=== PATIENT | male | born 1985 | race American Indian/Alaskan Native ===

== ENCOUNTER 2016-05-20 12:25 | Emergency (ER) | payer SELFPAY ==
[2016-05-20 15:36] LABS: Anion Gap 17 mmol/L; BUN/Creatinine Ratio 21.25; Blood Urea Nitrogen 17 mg/dL (9-20); Calcium 8.4 mg/dL (8.4-10.2); Carbon Dioxide 23 mmol/L (22-30); Chloride 105.5 mmol/L (98-107); Creatine Kinase 187 units/L (55-170); Glucose 91 mg/dL (75-100); Potassium 4.1 mmol/L (3.6-5.0); Sodium 141 mmol/L (137-145)
[2016-05-20 15:45] LABS: Basophils % (Auto) 0.8 % (0.0-1.8); Eosinophils % (Auto) 2.3 % (0.0-4.3); Hematocrit 41.6 % (35.5-45.6); Hemoglobin 14.1 gm/dl (11.8-15.2); Mean Corpuscular HGB Conc 34 % (32-34); Mean Corpuscular Hemoglobin 33 pg (28-32); Mean Corpuscular Volume 96 fl (84-94); Platelet Count 231 K/mm3 (140-440); Red Blood Count 4.35 M/mm3 (3.65-5.03); Red Cell Distribution Width 12.4 % (13.2-15.2)
--- NOTE | 2016-05-20 16:08 | XRay Report ---
ROUTINE CHEST, TWO VIEWS: Chest pain PA and lateral views demonstrate the heart and mediastinal contour to be of normal size and shape. The lungs are clear and fully expanded and the soft tissues and bony structures are normal. IMPRESSION: Normal study.
--- NOTE | 2016-05-20 16:20 | Emergency Department Report ---
ED Chest Pain HPI - General Chief Complaint: Chest Pain Stated Complaint: R SIDE NUMBNESS ARM DOWN TO LEG Time Seen by Provider: 05/20/16 16:17 Source: patient Mode of arrival: Ambulatory Limitations: No Limitations - History of Present Illness Initial Comments: Patient complaining of intermittent right-sided and left-sided chest pain for the past 7 days. Patient relates it is a squeezing pressure-like sensation. Patient denies nausea vomiting, diaphoresis, but does complain of shortness of breath when the pain occurs. Dates she called EMS last night and was told that it was probably just anxiety. Patient was not transported last night. MD Complaint: chest pain -: week(s) Onset: other (patient's pain has no correlation with any activity, and resolved spontaneously) Pain Location: left chest, right chest Quality: tightness, heaviness, pressure, squeezing Consistency: intermittent Improves With: rest - Related Data Allergies Allergy/AdvReac Type Severity Reaction Status Date / Time No Known Allergies Allergy Unverified 05/20/16 12:57 RODOLFO score - Rodolfo Score Age > 65: (0) No Aspirin use within the Past 7 Days: (0) No 3 or more CAD Risk Factors: (0) No 2 or more Angina events in past 24 hrs: (1) Yes Known CAD with more than 50% Stenosis: (0) No Elevated Cardiac Markers: (0) No ST Deviation Greater than 0.5mm: (0) No RODOLFO Score: 1 ED Review of Systems ROS: Stated complaint: R SIDE NUMBNESS ARM DOWN TO LEG Other details as noted in HPI Constitutional: denies: chills, diaphoresis, fever, malaise Eyes: denies: vision change Respiratory: shortness of breath. denies: cough, SOB with exertion, SOB at rest , wheezing Cardiovascular: denies: chest pain, edema, syncope, paroxysmal nocturnal dyspnea Endocrine: denies: excessive sweating, intolerance to cold, intolerance to heat Gastrointestinal: denies: nausea, vomiting, diarrhea, constipation Musculoskeletal: denies: back pain, joint swelling, arthralgia, myalgia Skin: denies: rash, lesions Neurological: paresthesias. denies: headache, weakness ED Past Medical Hx - Past Medical History Previous Medical History?: No - Surgical History Past Surgical History?: No - Social History Smoking Status: Current Every Day Smoker Substance Use Type: Alcohol, Marijuana ED Physical Exam - General Limitations: No Limitations General appearance: alert, in no apparent distress - Eye Eye exam: Present: normal appearance, PERRL, EOMI. Absent: scleral icterus, conjunctival injection, nystagmus, periorbital swelling, periorbital tenderness Pupils: Present: normal accommodation - ENT ENT exam: Present: mucous membranes moist - Neck Neck exam: Present: normal inspection, full ROM. Absent: tenderness, meningismus, lymphadenopathy, thyromegaly - Respiratory Respiratory exam: Present: normal lung sounds bilaterally. Absent: respiratory distress, wheezes, rales, rhonchi, stridor, chest wall tenderness, accessory muscle use, decreased breath sounds, prolonged expiratory - Cardiovascular Cardiovascular Exam: Present: regular rate, normal rhythm, normal heart sounds - GI/Abdominal GI/Abdominal exam: Present: soft, normal bowel sounds. Absent: distended, tenderness, guarding, rebound, rigid - Extremities Exam Extremities exam: Present: normal inspection, normal capillary refill. Absent: pedal edema, joint swelling, calf tenderness - Back Exam Back exam: Present: normal inspection. Absent: CVA tenderness (R), CVA tenderness (L) - Neurological Exam Neurological exam: Present: alert, oriented X3, normal gait. Absent: altered - Skin Skin exam: Present: warm, dry, intact, normal color. Absent: diaphoretic ED Course Vital Signs 05/20/16 05/20/16 12:51 20:09 Temperature 98.4 F 98.1 F Pulse Rate 63 63 Respiratory 20 18 Rate Blood Pressure 116/73 Blood Pressure 133/81 [Right] O2 Sat by Pulse 100 96 Oximetry - Reevaluation(s) Reevaluation #1: 05/20/16 20:05 patient advised that he is going to be admitted for atypical chest pain. Patient normotensive normal cardiac if this time in no distress, discussing whether he wants to be admitted with family members in the room. Reevaluation #2: 05/20/16 21:06 After advising patient several times that he was going to be admitted for chest pain rule out patient decided he wants to sign out AMA at this time. Paperwork done by staff in the ED. ED Medical Decision Making - Lab Data Result diagrams: 05/20/16 14:59 05/20/16 14:59 Lab Results 05/20/16 05/20/16 Range/Units 14:59 14:59 WBC 9.0 (4.5-11.0) K/mm3 RBC 4.35 (3.65-5.03) M/mm3 Hgb 14.1 (11.8-15.2) gm/dl Hct 41.6 (35.5-45.6) % MCV 96 H (84-94) fl MCH 33 H (28-32) pg MCHC 34 (32-34) % RDW 12.4 L (13.2-15.2) % Plt Count 231 (140-440) K/mm3 Lymph % (Auto) 27.9 (13.4-35.0) % [place] % (Auto) 8.4 H (0.0-7.3) % Eos % (Auto) 2.3 (0.0-4.3) % Baso % (Auto) 0.8 (0.0-1.8) % Lymph # 2.5 (1.2-5.4) K/mm3 [place] # 0.8 (0.0-0.8) K/mm3 Eos # 0.2 (0.0-0.4) K/mm3 Baso # 0.1 (0.0-0.1) K/mm3 Seg Neutrophils % 60.6 (40.0-70.0) % Seg Neutrophils # 5.5 (1.8-7.7) K/mm3 Sodium 141 (137-145) mmol/L Potassium 4.1 (3.6-5.0) mmol/L Chloride 105.5 (98-107) mmol/L Carbon Dioxide 23 (22-30) mmol/L Anion Gap 17 mmol/L BUN 17 (9-20) mg/dL Creatinine 0.8 (0.8-1.5) mg/dL Estimated GFR > 60 ml/min BUN/Creatinine Ratio 21.25 % Glucose 91 (75-100) mg/dL Calcium 8.4 (8.4-10.2) mg/dL Total Creatine Kinase 187 H (55-170) units/L CK-MB (CK-2) 2.0 (0.0-4.0) ng/mL CK-MB (CK-2) Rel Index 1.0 (0-4) Troponin T < 0.010 (0.00-0.029) ng/mL - EKG Data EKG shows normal: sinus rhythm Rate: normal Critical care attestation.: If time is entered above; I have spent that time in minutes in the direct care of this critically ill patient, excluding procedure time. ED Disposition Clinical Impression: Atypical chest pain Disposition: LEFT AGAINST MEDICAL ADVICE Is pt being admited?: Yes Does the pt Need Aspirin: Yes Condition: Stable Instructions: Chest Pain (ED) Referrals: PRIMARY CARE, [Primary Care Provider] - 3-5 Days Forms: AMA Form
[2016-05-20] MEDS ORDERED: ASPIRIN PO ONE (16:40)
[2016-05-20 18:44] LABS: Urine Drugs of Abuse Note Disclamer
[2016-05-20 20:10] VITALS: BP 133/81
== END 2016-05-20 21:00 | disposition left against medical advice (07) ==
LOC: ED 12:25
DX: R07.89 Other chest pain (principal); F17.200 Nicotine dependence, unspecified, uncomplicated; F12.10 Cannabis abuse, uncomplicated
CPT/HCPCS: 36415; 71020; 80048; 80307; 82550; 82553; 84484; 85025; 93005; 93010; 99284